=== PATIENT | female | born 1990 | race Caucasian/White ===

== ENCOUNTER 2022-02-10 06:44 | Emergency (ER) | payer BC | END 2022-02-10 07:57 | disposition home or self-care (01) | LOC: CSHERS 06:44 | DX: S80.02XA Contusion of left knee, initial encounter (principal); S40.021A Contusion of right upper arm, initial encounter; R03.0 Elevated blood-pressure reading, without diagnosis of hypertension; W13.2XXA Fall from, out of or through roof, initial encounter; Y99.0 Civilian activity done for income or pay ==

== ENCOUNTER 2022-11-04 21:21 | Emergency (ER) | payer BC ==
[2022-11-04 23:08] LABS: #Basophils 0.1 10x3/uL (0.0-0.2); #Eosinphils 0.2 10x3/uL (0.0-0.5); #Monocytes 0.8 10x3/uL (0.0-1.1); %Basophils 0.6 % (0.0-2.0); %Eosinophils 1.3 % (0.0-6.0); %Lymphocytes 19.3 % (18.0-47.0); %Monocytes 5.6 % (0.0-10.0); %Neutrophils 72.6 % (40.0-75.0); Hematocrit 32.5 % (34.9-44.5); Hemoglobin 9.8 g/dL (12.0-15.5); Mean Corpuscular HGB CONC 30.2 g/dL (32.0-36.0); Mean Corpuscular Hemoglobin 25.1 pg (27.0-33.0); Mean Corpuscular Volume 83.3 fl (81.6-98.3); Mean Platelet Volume 11.3 fl (7.4-10.4); Platelet Count 416 10x3/uL (150-450); RBC Distribution Width 13.5 % (11.5-14.5); White Blood Cell (WBC) Count 13.7 10x3/uL (3.5-10.5)
[2022-11-04 23:22] LABS: ALT (SGPT) 24 U/L (8-55); AST (SGOT) 18 U/L (5-34); Alkaline Phosphatase 107 U/L (40-110); Anion Gap 12 mmol/L (10-20); BUN (Urea Nitrogen) 13 mg/dL (7.0-18.7); Bilirubin, Total 0.3 mg/dL (0.2-1.2); Calc. Creatinine Clearance 0 mL/min (70-130); Calcium 9.3 mg/dL (7.8-10.44); Carbon Dioxide 28 mmol/L (22-29); Chloride 103 mmol/L (98-107); Estimated GFR 97; Globulin 3.3 g/dL (2.4-3.5); Glucose 92 mg/dL (70-105); Lipase 21 U/L (8-78); Potassium 3.9 mmol/L (3.5-5.1); Protein, Total 7.3 g/dL (6.0-8.3); Sodium 139 mmol/L (136-145)
[2022-11-04] MEDS ORDERED: Dicyclomine 20 MG/2 ML VIAL ONE (23:42)
[2022-11-04] MEDS ORDERED: Famotidine/PF 20 mg/2ml Vial ONE (23:42)
[2022-11-05 00:02] LABS: Bilirubin Neg (Negative); Blood, Urine Negative (Negative); Clarity Clear (Clear); Glucose, Urine (Dipstick) Normal (Negative); Ketone, Urine Negative (Negative); Leukocyte Negative (Negative); Nitrite Negative (Negative); Protein, Urine (Dipstick) 15 mg/dl (Neg-Trace); pH, Urine 6.5 (5.0-9.0)
[2022-11-05 00:04] LABS: Pregnancy Test - Urine (BHCG) Negative (Negative); Pregu Control Background? CLEAR/WHITE (CLR/WHITE); Pregu Control Bar Appear? YES (CONTROL BAR)
[2022-11-05 00:12] LABS: Bacteria/HPF Rare-Few HPF (None Seen); CAUTI Indications for Culture Pelvic or flank pain; RBC/HPF 0-3 HPF (0-3); Squamous Epithelial 0-3 HPF (0-3); WBC/HPF 0-3 HPF (0-3)
[2022-11-05 00:13] LABS: Urine Culture Reflex No No
[2022-11-05 00:25] LABS: Troponin I Less than 0.010 ng/mL (< 0.028)
[2022-11-05] MEDS ORDERED: Ketorolac Tromethamine 30 MG/ML VIAL ONE (01:52)
== END 2022-11-05 02:15 | disposition home or self-care (01) ==
LOC: CSHERS 21:21
DX: R10.13 Epigastric pain (principal); R10.11 Right upper quadrant pain
CPT/HCPCS: 76705; 80053; 81001; 81025; 83690; 84484; 85025; 93005; 96361; 96372; 96374; J1885; S0028